=== PATIENT | male | born 1955 | race Two or more races ===

== ENCOUNTER 2023-10-27 06:00 | Day surgery (SDC) | payer OTHER ==
[2023-10-20 12:04] LABS: INR 1.04; PARTIAL THROMBOPLASTIN TIME 33.5 SECONDS (22.0-34.0); PROTHROMBIN TIME 10.9 SECONDS (9.0-11.5)
[2023-10-20 12:14] LABS: ALBUMIN 3.8 gm/dL (3.4-5.0); BILIRUBIN TOTAL 0.6 mg/dL (0.3-1.2); CALCIUM 8.9 mg/dL (8.5-10.1); CREATININE SERUM 0.7 mg/dL (0.70-1.30); GFR 112.83; GLOBULINA 3.1 G/DL (2.4-3.5); POTASSIUM 4.14 mEq/L (3.5-5.1); TOTAL PROTEIN 6.9 gm/dL (6.4-8.2)
[~2023-10-27] VITALS: Ht 175.3 cm; Wt 132.9 kg
[~2023-10-27 06:00] MED LIST: FENASTERIDE; HORIZANT600 MG PO; LIPITOR40 M1 PO; OMEPRAZOLE-BIC1 EAC1 PO; OZEMPIC0.25 MG/02; PROZAC40 MG PO; TAMS0.4C PO; ZESTORETIC 20-1 EACH PO
[2023-10-27] MEDS ORDERED: METRONIDAZOLE/SODIUM CHLORIDE 500 MG/100 ML PIGGYBACK IV ONE ×2 (08:22→09:45)
[2023-10-27] MEDS ORDERED: CEFTRIAXONE SODIUM 2,000 MG VIAL ONE (08:22)
[2023-10-27] MEDS ORDERED: POVIDONE-IODINE 118 ML BOTT TOP ONE ×2 (08:30→09:45)
[2023-10-27] MEDS ORDERED: HEMOSTATIC MATRIX 1 KIT KIT TOP ONE ×2 (08:30→09:45)
[2023-10-27] MEDS ORDERED: CEFTRIAXONE SODIUM 2,000 MG VIAL IV ONE (09:45)
[2023-10-27] MEDS ORDERED: SUGAMMADEX SODIUM 200 MG/2 ML VIAL IV ONE (09:55)
[2023-10-27] MEDS ORDERED: TAMSULOSIN HCL 0.4 MG CAP PO ONE ×2 (10:00→12:17)
[2023-10-27] MEDS ORDERED: OXYC1TAB9 PO (10:05)
[2023-10-27] MEDS ORDERED: ONDANSETRON HCL 2 MG/ML VIAL ONE (10:37)
== END 2023-10-27 13:50 | disposition home or self-care (01) ==
LOC: CIR.AMB 06:00
PROVIDERS: ATTEND Surgery
DX: K64.2 Third degree hemorrhoids (principal); K62.89 Other specified diseases of anus and rectum; K62.5 Hemorrhage of anus and rectum; K64.4 Residual hemorrhoidal skin tags; Z86.010 Personal history of colon polyps; Z88.2 Allergy status to sulfonamides; I10 Essential (primary) hypertension; E78.00 Pure hypercholesterolemia, unspecified